=== PATIENT | female | born 1985 | race Caucasian/White ===

== ENCOUNTER → 2016-10-20 | Outpatient (CLI) | payer SELFPAY ==
--- NOTE | 2016-10-20 15:44 | DI ---
History: ultrasound limited to the heart Comparison: 09/26/16. Request for followup cardiac imaging today. Procedure: Mid-frequency ultrasound performed. Findings: Multiple images of the heart show normal 4 chamber view with normal outflow tracts. N o effusion seen. heart rate is 135 beats per minute. Impression: Normal appearing heart with ventricular outflow tracts visualized
== END ==
LOC: US 13:44
PROVIDERS: ATTEND Student in an Organized Health Care Education/Training Program
DX: Z36 Encounter for antenatal screening of mother (principal)
CPT/HCPCS: 76816

== ENCOUNTER → 2016-11-21 | Outpatient (CLI) | payer SELFPAY ==
[2016-11-21 09:43] LABS: HEMATOCRIT 33.8 % (37.0-47.0); HEMOGLOBIN 11.4 g/dL (12.0-16.0); MEAN CORPUSCULAR HEMOGLOBIN 29.5 PG (27-31); MEAN CORPUSCULAR HGB CONC 33.7 g/dL (33-37); MEAN PLATELET VOLUME 9.6 FL (7.4-12.2); RDW COEFFICIENT OF VARIATION 14.3 % (11.5-14.5); RED BLOOD COUNT 3.87 10^6/uL (4.20-5.40); WHITE BLOOD COUNT 9.72 10^3/uL (4.8-10.8)
== END ==
LOC: LAB 08:24
PROVIDERS: ATTEND Student in an Organized Health Care Education/Training Program
DX: Z34.82 Encounter for supervision of other normal pregnancy, second trimester (principal); Z29.13 Encounter for prophylactic Rho(D) immune globulin; Z3A.28 28 weeks gestation of pregnancy
CPT/HCPCS: 36415; 82950; 85027; 86850; 86900; 86901; J2790

== ENCOUNTER 2017-01-09 14:39 | Outpatient (CLI) | payer OTHER ==
[2017-01-09] MEDS ORDERED: NORMAL SALINE 10 ML SYRINGE FLUSH IVP PRN (14:59)
[2017-01-09 15:11] VITALS: RESP 16; TEMP 98.1
--- NOTE | 2017-01-10 19:59 | PDOC(PROG) ---
Intake - - Reason for Visit/Chief Complaint: Leakage of Fluid Additional Reason(s) for Visit: vaginal d/c, pelvic pressure Admitted From: Home - Estimated Due Date: 02/10/17 Gestational Age in Weeks and Days: 35 Weeks and 4 Days : 3 Term Births: 1 Living Children: 1 - Labs Blood Type and Rh: O- Group B Strep: Unknown Hepatitis B Surface Antigen: Absent HIV: Negative Rubella Status: Immune VDRL/RPR: Absent Maternal - Vital Signs Last Taken Vital Signs: Vital Signs - Last Taken Temperature 98.1 F 01/09/17 14:59 Pulse Rate 97 01/09/17 14:59 Respiratory Rate 16 01/09/17 14:59 Blood Pressure 113/82 01/09/17 15:21 Pulse Ox 98 01/09/17 14:59 - Uterine Activity Uterine Contraction Monitor Mode: External Contraction Frequency(minutes): x1 Contraction Duration (seconds): 150 Uterine Contraction Pattern: Absent - Vaginal Discharge Vaginal Bleeding Amount: None Vaginal Discharge Amount: Small Vaginal Discharge Description: Thick Vaginal Discharge Color: Brown Vaginal Discharge Odor: Odorless Vaginal Itching: No Monitoring - Uterine Activity Uterine Contraction Monitor Mode: External Contraction Frequency(minutes): x1 Contraction Duration (seconds): 150 Uterine Contraction Pattern: Absent Results - Bedside Testing Bedside Urine Ketone: Small Bedside Urine Leukocytes Esterase: Negative Bedside Urine Nitrite: Negative Bedside Urine Occult Blood: Trace Bedside Urine Protein: Trace Bedside Specific [place]: 1.010 Assessment and Plan - Patient Problems (1) Vaginal discharge during in third trimester Status: AcuteSupport Text: 31 yo at 35 3/7 weeks gestation presented with ?LOF vs increased vaginal discharge, contractions. Amnisure negative, negative vaginosis panel. Reactive NST with some uterine irritability. GBS collected. Recommended rest, fluids. Return precautions.
== END 2017-01-09 16:22 | disposition home or self-care (01) ==
LOC: OBOP 14:39
PROVIDERS: ATTEND Student in an Organized Health Care Education/Training Program
DX: O60.03 Preterm labor without delivery, third trimester (principal); O26.893 Other specified pregnancy related conditions, third trimester; N89.8 Other specified noninflammatory disorders of vagina; Z3A.35 35 weeks gestation of pregnancy
CPT/HCPCS: 59025; 81003; 84112; 87150; 87480; 87510; 87660; 99211

== ENCOUNTER 2017-02-03 06:21 | Inpatient (IN) | payer OTHER ==
[2017-02-03] MEDS ORDERED: CefOXitin Inj 2 GM in Sodium Chloride 0.9% 100 ML IV PRN (07:03)
[2017-02-03] MEDS ORDERED: Naloxone Inj 0.01 MG in Normal Saline Flush 1 ML IVP PRN (07:03)
[2017-02-03] MEDS ORDERED: MISOPROSTOL 200 MCG TABLET RECTAL PRN (07:03)
[2017-02-03] MEDS ORDERED: Metoclopramide Inj 10 MG/2 ML VIAL IV PRN (07:03)
[2017-02-03] MEDS ORDERED: Lidocaine 1% 10 MG/ML - 20 ML VIAL SUBCUT PRN (07:03)
[2017-02-03] MEDS ORDERED: Carboprost Inj 250 MCG/ML AMP IM PRN (07:03)
[2017-02-03] MEDS ORDERED: CALCIUM CARBONATE 500 MG (TUMS) CHEWABLE TABLET PO PRN (07:03)
[2017-02-03] MEDS ORDERED: CITRIC ACID/SODIUM CITRATE 30 ML CUP PO PRN (07:03)
[2017-02-03] MEDS ORDERED: NORMAL SALINE 10 ML SYRINGE FLUSH IVP PRN (07:03)
[2017-02-03] MEDS ORDERED: METHYLERGONOVINE MALEATE 0.2 MG/1 ML VIAL IM PRN (07:03)
[2017-02-03] MEDS ORDERED: Nalbuphine Inj 20 MG/ML Ampule IVP PRN (07:03)
[2017-02-03] MEDS ORDERED: LIDOCAINE W/ SODIUM BICARB 0.5 ML SYR SUBD PRN (07:03)
[2017-02-03] MEDS ORDERED: Phenylephrine Inj 50 MCG in Normal Saline Flush 0.5 ML IVP PRN (07:03)
[2017-02-03] MEDS ORDERED: TERBUTALINE SULFATE 1 MG/1 ML SDV SUBCUT PRN (07:03)
[2017-02-03] MEDS ORDERED: Famotidine Inj 20 MG in Normal Saline Flush 10 ML IVP PRN ×4 (07:03)
[2017-02-03] MEDS ORDERED: BUTORPHANOL TARTRATE 2 MG/1 ML VIAL IVP PRN (07:03)
[2017-02-03] MEDS ORDERED: diphenhydrAMINE 50 MG/1 ML VIAL IVP PRN (07:03)
[2017-02-03] MEDS ORDERED: ePHEDrine Inj 5 MG in Normal Saline Flush 1 ML IVP PRN (07:03)
[2017-02-03] MEDS ORDERED: NALOXONE 0.4 MG/1 ML VIAL IVP PRN (07:03)
[2017-02-03] MEDS ORDERED: ONDANSETRON 4 MG/2 ML VIAL IVP PRN (07:03)
[2017-02-03] MEDS ORDERED: Oxytocin 20 Units + LR 1,000 ML IV SCH (07:15)
[2017-02-03] MEDS ORDERED: WATER STERILE FOR ONE (07:31)
[2017-02-03] MEDS: Lactated Ringers-OB Dept 1,000 ML PRIMARY IV SCH ×3 (08:10→18:55)
[2017-02-03 08:27] LABS: HEMATOCRIT 35.8 % (37.0-47.0); HEMOGLOBIN 11.9 g/dL (12.0-16.0); MEAN CORPUSCULAR HEMOGLOBIN 28.3 PG (27-31); MEAN CORPUSCULAR HGB CONC 33.2 g/dL (33-37); MEAN CORPUSCULAR VOLUME 85.2 FL (81-99); MEAN PLATELET VOLUME 10.1 FL (7.4-12.2); RED BLOOD COUNT 4.2 10^6/uL (4.20-5.40)
--- NOTE | 2017-02-03 09:36 | OB.PROGRES ---
Interval History: 31 yo at 39 0/7 weeks gestation by LMP and first trimester u/s. Patient here for elective induction of labor. She thinks she passed her mucous plug on Monday. Has had irregular contractions. No LOF or VB. Good FM. Her moved back to [place], is flying in today, supposed to land in [place] at 11. She and the kids will move to [place] after her daughter finishes Kindergarten at the end of the month. uncomplicated. Blood type O negative, did received rhogam at 28 weeks. Received flu shot and TDaP. 20 week u/s - normal, anterior placenta. GBS negative 01/09/17 OBHx 02/20/11 - delivered a 6lb 3oz female named Enmanuel at 38 weeks gestation via Vaginal deliver. She did have an epidural. Delivered in [facility]. course complicated by hyperemesis with 2 ER visits. Delivery uncomplicated, no tears. Long labor. 02/21 - first tri SAB, spontaneously passed tissue Last pap 2013. No h/o abnl pap. No h/o STIs. PMH - pancreattis in 2010 after delivery of daughter PSH - none FH - Mother - thyroid disease. FOB - no known family hx SH - , no smoking, drugs or etoh use Meds - PNV since mid May NKDA Objective - Cervical Exam Cervical Exam: 1.53, moderately firm on Monday. Cervical exam not done today, just visualized via sterile spec exam. Heart Rate: baseline 140s mod ann +accels no decels Heart Rate Interpretation Category: Category I - Labs CBC and BMP: 02/03/17 08:10 Labs - Last 24 Hours: Laboratory Results 02/03/17 Range/Units 08:10 WBC 7.97 (4.8-10.8) 10^3/uL RBC 4.20 (4.20-5.40) 10^6/uL Hgb 11.9 L (12.0-16.0) g/dL Hct 35.8 L (37.0-47.0) % MCV 85.2 (81-99) FL MCH 28.3 (27-31) PG MCHC 33.2 (33-37) g/dL RDW Std Deviation 45.7 (39-50) fL RDW Coeff of Ann 15.3 H (11.5-14.5) % Plt Count 158 (140-350) 10*3/uL MPV 10.1 (7.4-12.2) FL - Vital Signs Last Taken Vital Signs: Vital Signs - Last Taken Temperature 97.8 F 02/03/17 08:10 Pulse Rate 75 02/03/17 09:00 Respiratory Rate 18 02/03/17 08:10 Blood Pressure 123/81 02/03/17 08:10 Pulse Ox 97 02/03/17 09:00 Assessment and Plan - Patient Problems (1) Term Current Visit: Yes Status: AcuteSupport Text: 31 yo at 39 0/7 weeks gestation admitted for Elective IOL. We did discuss increased risk of section, long labor associated with IOL. -Cook catheter placed without complication for cervical ripening. Uterine bulb filled with 80cc, vaginal bulb 40 cc, patient tolerated well. -GBS negative -Will want epidural eventually -Continue close monitoring
--- NOTE | 2017-02-03 17:34 | OB.PROGRES ---
Interval History: 31 yo at 39 0/7 weeks gestation s/p 9 hours of cook catheter with regular contractions but little cervical change. Patient states they are starting to get uncomfortable. Objective - Cervical Exam Cervical Exam: 1.5/50/-2 [place]: q2-4min Heart Rate: baseline 130, mod variability, accels no decels Heart Rate Interpretation Category: Category I - Labs CBC and BMP: 02/03/17 08:10 Labs - Last 24 Hours: Laboratory Results 02/03/17 Range/Units 08:10 WBC 7.97 (4.8-10.8) 10^3/uL RBC 4.20 (4.20-5.40) 10^6/uL Hgb 11.9 L (12.0-16.0) g/dL Hct 35.8 L (37.0-47.0) % MCV 85.2 (81-99) FL MCH 28.3 (27-31) PG MCHC 33.2 (33-37) g/dL RDW Std Deviation 45.7 (39-50) fL RDW Coeff of Ann 15.3 H (11.5-14.5) % Plt Count 158 (140-350) 10*3/uL MPV 10.1 (7.4-12.2) FL - Vital Signs Last Taken Vital Signs: Vital Signs - Last Taken Temperature 97.7 F 02/03/17 17:00 Pulse Rate 71 02/03/17 17:00 Respiratory Rate 18 02/03/17 17:00 Blood Pressure 118/64 02/03/17 17:00 Pulse Ox 98 02/03/17 17:00 Assessment and Plan - Patient Problems (1) Term Current Visit: Yes Status: AcuteSupport Text: 31 yo at 39 0/7 weeks gestation -Patient to eat dinner, walk around -Will plan to start cytotec tonight as little change with mechanical ripening -GBS negative -Will eventually want an epidural
[2017-02-03] MEDS: Misoprostol Tab 100 MCG TAB VAGINAL SCH (19:53)
[2017-02-04] MEDS: Lactated Ringers-OB Dept 1,000 ML PRIMARY IV SCH ×3 (01:00→07:53)
[2017-02-04] MEDS: Misoprostol Tab 100 MCG TAB VAGINAL SCH ×2 (02:22→06:48)
[2017-02-04] MEDS ORDERED: Oxytocin 20 Units + LR 1,000 ML IV SCH ×2 (05:00→12:29)
[2017-02-04] MEDS: fentaNYL Inj 100 MCG/2 ML VIAL IV PRN ×2 (05:04→05:56)
[2017-02-04] MEDS ORDERED: Fent/Bupiv 2mcg/0.0625% Epid 250 ML ONE (07:04)
--- NOTE | 2017-02-04 07:40 | CRNA.PROCE ---
Central Neuraxis Block Placemt - - Safety Measures: Time Out Taken, Site Verified - - Type of Block: Epidural Reason for Block: Analgesia Moniters Used During Block: SPO2, NIBP Positioning: Sitting Skin Prep Used: ChloroPrep Draped: Yes Skin Infiltration - Enter Amount Used in Comment Field: 1% Xylocaine (mL): Yes ( skinwheal) Spinal Needle Used: 18 Hustead 80 mm Local Anesthetic - Enter Amount Used in Comment Field: 1.5 % Xylocaine with Epinephrine 1:200,000 (mL): Yes Number of Centimeters Catheter Threaded: 4 Bioclusive Dressing Applied: Yes
[2017-02-04] MEDS ORDERED: fentaNYL 2 MCG/BUPIVACAINE 0.0625%/NS 0.9% 250 ML BAG EPIDURAL SCH (07:45)
--- NOTE | 2017-02-04 10:53 | OB.PROGRES ---
Interval History: 31 yo at 39 1/7 weeks gestation here for elective induction. She was given one dose of cytotec pv last night, then ruptured. Pitocin was started around 0500. She has progressed well since then. Now with a bulging bag again. Objective - Cervical Exam Cervical Exam: 9/100/0, AROM clear fluid [place]: q2-3 mins Heart Rate: baseline 125, moderate variability, no decels, accels Heart Rate Interpretation Category: Category I - Labs CBC and BMP: 02/03/17 08:10 Labs - Last 24 Hours: Laboratory Results 02/04/17 Range/Units 00:25 Amnio [place] Other Info Positive (NEGATIVE) - Vital Signs Last Taken Vital Signs: Vital Signs - Last Taken Temperature 97.9 F 02/04/17 07:45 Pulse Rate 78 02/04/17 10:00 Respiratory Rate 16 02/04/17 10:00 Blood Pressure 108/70 02/04/17 10:00 Pulse Ox 98 02/04/17 10:00 Assessment and Plan - Patient Problems (1) Term Current Visit: Yes Status: AcuteSupport Text: 31 yo at 39 1/7 weeks gestation -Progressing well now s/p 10 hours of cook catheter, 1 25 mcg dose of cytotec and pitocin -Epidural in place -GBS negative -Continue close observation
--- NOTE | 2017-02-04 12:26 | OB.DEL.SUM ---
Delivery Note Delivery Summary: 31 yo G3 now P2 delivered a TAGA male via in KAITLIN position over intact perineum with epidural anesthesia at 1138. No nuchal cord. Terminal meconium noted. Cord was doubly clamped and cut by myself. He was handed off to the nursery RN in attendance. The placenta delivered spontaneous intact with 3- vessel cord at 1141. The perineum, vagina and cervix were all inspected. Notable only for an abrasion on maternal R labia minora - hemostatic, no repair necessary. EBL 200 cc. Apgars 7,8. - Patient Problems (1) Term Current Visit: Yes Status: Acute
[2017-02-04] MEDS ORDERED: METHYLERGONOVINE MALEATE 0.2 MG/1 ML VIAL IM PRN (12:29)
[2017-02-04] MEDS ORDERED: NORMAL SALINE 10 ML SYRINGE FLUSH IVP PRN (12:29)
[2017-02-04] MEDS ORDERED: GLYCERIN/WITCH HAZEL 1 BOX TOPICAL PRN (12:29)
[2017-02-04] MEDS ORDERED: HYDROcodone-APAP 5 MG -325 MG TABLET PO PRN (12:29)
[2017-02-04] MEDS ORDERED: OXYTOCIN 10 UNIT/1 ML IM ONE (12:29)
[2017-02-04] MEDS ORDERED: ONDANSETRON 4 MG/2 ML VIAL IVP PRN (12:29)
[2017-02-04] MEDS ORDERED: Carboprost Inj 250 MCG/ML AMP IM PRN (12:29)
[2017-02-04] MEDS ORDERED: BENZOCAINE/MENTHOL SPRAY 56 GM BOTTLE TOPICAL PRN (12:29)
[2017-02-04] MEDS ORDERED: Methylergonovine Tab 0.2 MG TAB PO PRN (12:29)
[2017-02-04] MEDS ORDERED: diphenhydrAMINE 25 MG CAPSULE PO PRN (12:29)
[2017-02-04] MEDS ORDERED: diphenhydrAMINE 50 MG/1 ML VIAL IVP PRN (12:29)
[2017-02-04] MEDS ORDERED: ACETAMINOPHEN 325 MG TABLET PO PRN (12:29)
[2017-02-04] MEDS ORDERED: MISOPROSTOL 200 MCG TABLET RECTAL ONE (12:29)
[2017-02-04] MEDS ORDERED: LANOLIN HPA 40 GM TUBE TOPICAL PRN (12:29)
[2017-02-04] MEDS ORDERED: Ondansetron ODT Tab 4 MG TAB PO PRN (12:29)
[2017-02-04] MEDS ORDERED: Nalbuphine Inj 20 MG/ML Ampule IVP PRN (12:29)
[2017-02-04] MEDS ORDERED: CALCIUM CARBONATE 500 MG (TUMS) CHEWABLE TABLET PO PRN (12:29)
--- NOTE | 2017-02-04 15:56 | CRNA.PROGR ---
Anesthesia Note Anesthesia Progress Note: Anesthesia Post Epidural note Pt is sitting up in bed nursing . The epidural catheter was DC Vital Signs (Last 8 hours) Temp Pulse Pulse Resp BP BP Pulse Ox 02/04/17 13:30 98.2 F 80 16 108/45 98 02/04/17 13:00 98 16 100/64 99 02/04/17 12:51 98.0 F 71 16 111/58 99 02/04/17 12:15 98.4 F 75 16 110/78 99 02/04/17 12:00 85 16 103/75 99 02/04/17 11:45 78 16 102/41 99 02/04/17 11:40 98.7 F 94 22 129/62 98 02/04/17 11:00 93 120/61 100 02/04/17 10:45 74 16 117/73 99 02/04/17 10:30 68 16 113/69 99 02/04/17 10:15 98.0 F 73 16 118/70 98 02/04/17 10:00 78 16 108/70 98 02/04/17 09:45 65 16 105/61 93 02/04/17 09:30 65 97/86 94 02/04/17 09:15 64 16 99/54 93 02/04/17 09:00 97/56 02/04/17 08:45 78 16 99/59 93 02/04/17 08:30 63 16 96/54 95 02/04/17 08:15 62 96/59 94 02/04/17 08:00 61 16 99/62 98 'd and removed at 1228. She states that there are no residual problems of the epidural and she has been up ambulating and to the restroom without any problems. She is tolerating a regular diet. Current VS are stable.
[2017-02-04] MEDS: DOCUSATE 100 MG CAPSULE PO SCH (20:08)
[2017-02-05] MEDS: IBUPROFEN 800 MG TABLET PO PRN ×2 (00:34→08:49)
[2017-02-05] MEDS: DOCUSATE 100 MG CAPSULE PO SCH (08:48)
[2017-02-05 08:59] VITALS: RESP 16; TEMP 98.9
[2017-02-05] MEDS ORDERED: RHO(D) IMMUNE GLOBULIN 1500 UNIT(300 mcg)SYRIN IM PRN (09:00)
[2017-02-05] MEDS ORDERED: Prenatal Multivitamin Tab 1 TAB TAB PO SCH (09:00)
--- NOTE | 2017-02-05 09:01 | DCSUMMARY ---
Hospitalization Summary Admit Date: 02/03/17 Discharge Date: 02/05/17 Primary Diagnosis:: Normal Vaginal Delivery Delivery Type: Vaginal Hospital Course: 31 yo G3 now P2 was admitted at 39 0/7 weeks gestation for elective IOL. had been uncomplicated, she did receive Rhogam at 28 weeks. Cervical ripening was started with a cook catheter with little success after 10 hours. She was given 1 dose of cytotec 25 mcg pv and started with regular contractions and better cervical ripening. About 4 hours after placement she had SROM. Early the next morning she was started on pitocin then progressed nicely to complete. She delivered a TAGA male . No significant tears. Apgars 7,8. / Postop Complications: None apparent, recovering well [place] Complications: None apparent Exam - Vitals Vital Signs: Vital Signs Temperature 97.7 F Temperature Source Oral Pulse Rate [Pulse Oximeter] 68 Pulse Rate 80 Respiratory Rate [uc] 16 Respiratory Rate 20 Blood Pressure [Right Arm] 113/73 Blood Pressure 108/45 Pulse Ox 97 Oxygen Delivery Method Room Air Height 5 ft 2 in Weight 154 lb 3.2 oz - General General Appearance: POSITIVE: No Acute Distress, Cooperative - Head Head Exam: POSITIVE: Normal Inspection - Eye Eye Exam: POSITIVE: Normal Appearance - Respiratory Respiratory Exam: POSITIVE: Clear to Auscultation - Bilaterally, Breathing Non Labored - Cardiovascular Cardiovascular Exam: POSITIVE: RRR - GI/Abdominal GI/Abdominal Exam: POSITIVE: Normal Bowel Sounds, Non Tender Additional GI/Abdominal Exam Details: Fundus U-1, firm - External Exam: POSITIVE: Deferred Exam: POSITIVE: Deferred - Extremities Extremities Exam: POSITIVE: +1 Edema - Neurological Neurological Exam: POSITIVE: Alert, Oriented x 3 - Psychiatric Psychiatric Exam: POSITIVE: Normal Affect, Normal Mood - Integumentary Integumentary Exam: POSITIVE: Normal Color Patient Problems - Patient Problem List (1) Term Current Visit: Yes Status: Acute (2) Normal vaginal delivery Current Visit: Yes Status: AcuteSupport Text: 31 yo G3 now P2 s/p NVD at 39 1/7 weeks gestation after elective IOL. PPD 1. Doing well. Breast feeding. Ambulating. Moderate lochia. Did have an episode this morning where she was unable to hold her bladder. -D/c to home today, f/u 6 weeks pp. Will be moved to [place] at that point, to f/u there. -February consider Mirena 6 weeks pp, h/o pancreatitis with NANCY. -Continue PNV while , Motrin 600-800mg po q6-8h prn pain, Colace bid until normal BMs. -Blood type O-, O+, will get rhogam prior to d/c
== END 2017-02-05 12:34 | disposition home or self-care (01) | DRG 775 ==
LOC: OBIP 07:03 → UNDOADMIN 07:03 → UNDODISIN 02-05 12:34
PROVIDERS: ADMIT Student in an Organized Health Care Education/Training Program; ATTEND Student in an Organized Health Care Education/Training Program
PROC: 10E0XZZ Delivery of Products of Conception, External Approach (ICD-10-PCS; principal; 2017-02-03)
DX: O80 Encounter for full-term uncomplicated delivery (principal); Z3A.39 39 weeks gestation of pregnancy; Z37.0 Single live birth
CPT/HCPCS: 36415; 81003; 84112; 85027; 86850; 86900; 86901; 86970; A4216; J2210; J2405; J2790; J3010; J3490; J7120